=== PATIENT | female | born 1985 | race Caucasian/White ===

== ENCOUNTER → 2021-03-31 01:11 | Outpatient (CLI) | payer BC, SELFPAY ==
[2021-03-31 17:24] LABS: SARS-CoV-2 RNA PCR Negative
== END ==
PROVIDERS: Visit Provider Obstetrics & Gynecology
DX: Z01.812 Encounter for preprocedural laboratory examination (principal); Z20.822 Contact with and (suspected) exposure to COVID-19
CPT/HCPCS: C9803; U0003; U0005

== ENCOUNTER 2021-03-31 08:51 | Outpatient (CLI) | payer BC, SELFPAY ==
[2021-03-31 09:14] LABS: Hemoglobin 14.3 g/dL (12.0-15.0); Red Blood Count 4.66 M/mm3 (4.2-5.4)
[2021-03-31 09:15] LABS: Basophils Absolute Auto 0.1 K/mm3 (0.0-0.1); Basophils Percent Auto 0.6 % (0.2-1.2); Eosinophils Absolute Auto 0.1 K/mm3 (0-0.3); Eosinophils Percent Auto 1.6 % (0-4.4); Hematocrit 41.6 % (37.0-47.0); Immature Granulocyte Absolute 0.04 K/mm3 (0.00-0.031); Immature Granulocyte Percent A 0.4 % (0-0.5); Lymphocytes Absolute Auto 2.35 K/mm3 (0.9-3.2); Lymphocytes Percent Auto 26.2 % (18.3-44.2); Mean Corpuscular HGB Conc 34.4 g/dl (32-36); Mean Corpuscular Hemoglobin 30.7 pg (26-34); Mean Corpuscular Volume 89.3 fl (80-100); Mean Platelet Volume 9.9 fl (7.4-10.4); Monocytes Absolute Auto 0.6 K/mm3 (0.1-0.6); Neutrophils Absolute Auto 5.8 K/mm3 (1.3-6.7); Neutrophils Percent Auto 64.2 % (45.5-73.1); Platelet Count Result 274 k/mm3 (150-375); Red Cell Distribution Width 12.6 % (11.5-14.5)
== END 2021-03-31 08:52 | disposition home or self-care (01) ==
LOC: ANHSURGERY 08:54
PROVIDERS: Visit Provider Obstetrics & Gynecology
DX: Z01.812 Encounter for preprocedural laboratory examination (principal)
CPT/HCPCS: 36415; 85025; 86850; 86900; 86901

== ENCOUNTER 2021-04-03 00:04 | Day surgery (SDC) | payer BC, SELFPAY ==
[2021-03-30 09:17] VITALS: BMI 30.8
--- NOTE | 2021-04-01 06:34 | PM.IMHP ---
H&P: HPI History of Present Illness Date/Time: 04/01/21 06:34 35-year-old 4 para 3 admitted for robotic total vaginectomy and bilateral salpingectomies. She complains of pelvic pain and heavy bleeding. She has an enlarged uterus [id number] on ultrasound. She was unwilling to try an IUD and had no luck with hormonal manipulation. Permanence risks and benefits reviewed in full Chief Complaint: pelvic pain/ enlarged uterus/ uterine prolapse Review of Systems Review of Systems: All systems reviewed & are unremarkable except as noted in HPI and below PMFSH Social History Social History Smoking status: Current some day smoker Tobacco type: cigarettes Additional smoking assessment comments: SOCAILLY WHEN DRINKING Alcohol intake: current Substance use: never Substance use type: does not use Spiritual care concerns: No Meds Home Medications and Allergies Home Medications Medication Instructions Recorded Confirmed Type fexofenadine [Sonya] 180 mg PO DAILY 03/30/21 03/30/21 History Allergies Allergy/AdvReac Type Severity Reaction Status Date / Time progesterone Allergy Intermediate IN SESAME Verified 03/30/21 09:15 OIL= SWELLING AND ITCHING Exam Const: General: no acute distress Eyes: General: appearance normal, both eyes and all related structures Neck: Neck: supple and no JVD Thyroid: thyroid normal Resp: Effort & Inspection: normal respiratory effort Auscultation: clear to auscultation bilaterally Cardio: Rate: regular rate Rhythm: regular rhythm GI: Inspection: non-distended GI Palp: Yes Soft to palpation, No Tenderness to palpation present (GI) and No Guarding due to palpation present (GI) Auscultation: normal bowel sounds : External Female Exam: normal external appearance Speculum Exam - Vagina: normal appearance of the vagina Speculum Exam - Cervix: normal appearance of the cervix Bimanual exam- vagina & uterus: enlarged and Uterine tenderness Bimanual Exam- Adnexa, other: normal adnexae Skin: General skin exam: no rashes or lesions noted Extrem: General: normal to inspection and no edema Psych: Mental Status: mental status grossly normal Affect: normal affect Assessment and Plan Additional Plan impression: Enlarged uterus and pelvic pain with second-degree prolapse Plan: Robotic total vaginal hysterectomy and bilateral salpingectomy
--- NOTE | 2021-04-02 16:11 | P.PNAN_ITS ---
Anes - Initial Pre Proc Eval Procedure: Operation Date: 04/03/21 07:30 Proposed Procedures p Robotic Assisted Total Vaginal Hysterectomy With Bilateral Salpingectomy - Noel Thomas MD Date/Time: 04/02/21 16:11 Surgeon: Noel Thomas MD Pre Op Diagnosis: menorrhagia, pelvic pain, enlarged uterus Patient Data Age: 35 Gender: F Height: 1.71 m Weight: 90.72 kg Allergies Allergy/AdvReac Type Severity Reaction Status Date / Time progesterone Allergy Intermediate IN SESAME Verified 04/03/21 06:12 OIL= SWELLING AND ITCHING Home Medications Medication Instructions Recorded Confirmed Type fexofenadine [Sonya] 180 mg PO DAILY 03/30/21 04/03/21 History Patient hx anesthesia problems: none Family hx anesthesia problems: none [facility] Past Medical History Medical History (Updated 04/02/21 @ 16:11 by Benjamin Humphrey MD) Obesity Social History Social History Smoking status: Current some day smoker Tobacco type: cigarettes Additional smoking assessment comments: SOCAILLY WHEN DRINKING Alcohol intake: current Alcohol use details: 2-3/MONTH Substance use: never Substance use type: does not use Living arrangements: with family Spiritual care concerns: No Anes - Eval Final PreProcedure Day of Procedure 04/02/21 16:11 Patient weight: obese Heart: regular rate and rhythm Lungs: clear to auscultation and normal air movement Airway: Mallampati scale class II Neurological: alert and oriented Last oral intake: >/= 8 hours ASA classification: II Emergent: no Anesthetic plan: proceed Anesthesia type and monitoring: general ETT Informed Consent: The patient's anesthetic plan and its attendant risks and benefits were discussed with the patient/family/POA. Questions were solicited and answers provided to the satisfaction of the patient/family/POA.
[2021-04-03] VITALS (12 sets, daily range): BP systolic 107–145; BP diastolic 61–96; PULSE 66–100; RESP 11–20; TEMP 36.2–37.1; O2SAT 98–100
[2021-04-03] MEDS: ACETAMINOPHEN 500 MG TABLET 1000 MG PO (06:38)
[2021-04-03] MEDS: KETOROLAC 15 MG/ML VIAL (*BKC) IV PUSH (06:39)
[2021-04-03] MEDS: LACTATED RINGERS 1,000 ML 30 ML IV CONT ×2 (06:39→09:06)
--- NOTE | 2021-04-03 07:16 | WPDHPUPDATE1 ---
History and Physical Update Update Date/Time: 04/03/21 07:16 History and Physical has been reviewed, including an updated exam of the patient. There are NO changes in the patient's condition. Risks, benefits, and alternatives have been discussed and questions answered. Patient agrees to proceed with procedure.
[2021-04-03] MEDS: ceFAZolin 2 GM/D5W 50 ML 2 GM/50 ML BAG IVPB (07:27)
--- NOTE | 2021-04-03 08:47 | W.PM.PROC2 ---
Procedure Note - Detailed Date of Procedure 04/03/21 Pre-op Diagnosis menorrhagia, pelvic pain, enlarged uterus Post-op Diagnosis same Procedure Performed Robotic total vaginal hysterectomy and bilateral salpingectomy Surgeon Noel Thomas MD Anesthesia general Findings Markedly enlarged uterus. Tubes were swollen and status post tubal ligation. Normal-appearing ovaries Description of Procedure The patient was prepped draped in the normal sterile fashion and placed in the dorsal lithotomy position. Under excellent general endotracheal anesthesia weighted speculum placed in posterior fornix of vagina. Anterior lip of the cervix grasped with single-tooth tenaculum and the uterus sounded to 9cm. Serial dilatation with fragmented dilators performed followed by passage of the 8. MICHELLE and the 3. Cold cup. A 16 Indonesian catheter was placed in the bladder was drained of clear urine. The weighted speculum was removed as was the single-tooth. The gloves were changed. A supraumbilical incision made. The Veress needle passed in the abdomen. The abdomen filled with CO2 gas [id number]. The 8mm trocar advanced in the abdomen. The downside visualized no injury seen. The gas reattached in the patient placed in Trendelenburg. Right and left lateral quadrant incisions made in the 8mm trocars advanced under direct visualization assuring no injury. A right upper quadrant incision made in the 10mm trocar advanced under direct visualization assuring no injury. The robot was docked. Attention was turned to the console. The left round ligament was grasped, burned, cut. Anteriorly the bladder was markedly adherent to the uterus and was dissected and pressed caudally serially layer by layer until the cervix was exposed. This was brought across to the opposite round ligament. The round ligament on the right was clamped, burned, cut. The left fallopian tube was sharply dissected using monopolar cautery away from the ovarian complex. In like fashion the right fallopian tube was dissected away with sharp dissection and monopolar cautery to its base at the uterus as well. The ovaries appeared clear the left utero-ovarian ligament was skeletonized. This was serially clamped, burned, cut and brought to the level of previously cut round ligament in like fashion the utero-ovarian ligament on the right was clamped, burned, cut and brought to the level of the previously cut round ligament preserving the right ovary. The left cardinal and broad ligaments were serially skeletonized and sharply dissected with bipolar cautery clamping cutting burning until the uterine vessels could be seen. Uterine vessels on the left were noted be large and tortuous. These were individually clamped, burned, cut and till taken in completion. In like fashion the right cardinal and broad ligaments were serially skeletonized using bipolar cautery these were clamped, burned, cut and brought down the lateral edge of the cervix and uterus until the uterine vessels could be seen right. They were also large and torturous and wondered individually clamped, burned, cut and brought down the lateral edge of the uterus and cervix. At that point excellent blanching of the uterus was noted. A colpotomy incision was made and the cervix uterus and tubes removed through the vagina. Blood loss estimated at [id number]. The vagina was then closed with continuous running 0V lock from lateral edge to lateral edge back to the midline. Irrigation undertaken until clear and excellent hemostasis was noted. The robot was undocked. The gas removed from the abdomen. The trocars removed and the incisions closed with 4 Monocryl and glue. The patient was awakened. She went to recovery in satisfactory condition. All sponge, needle, instrument counts were correct. There were no immediate complications blood loss was estimated [id number] for the entire procedure Estimated Blood Loss 100 Drains No Pathology yes Com
[2021-04-03] MEDS: fentaNYL CITRATE INJ (*CRX) 100 MCG/2 ML VIAL 25 MCG IV PUSH ×3 (09:53→10:06)
--- NOTE | 2021-04-03 10:36 | PC.NURSE ---
This patient, Chichi Traore, was received from PACU on 04/03/21 at 1036 per bed. Patient/family oriented to unit policies and routines
[2021-04-03] MEDS: DEXTROSE 5%/LACTATED RINGERS 1,000 ML 125 ML IV CONT (11:02)
[2021-04-03] MEDS: KETOROLAC 30 MG/ML VIAL (*BKC) IV PUSH ×2 (12:18→19:24)
[2021-04-03] MEDS: HYDROcodone/acetaminophen (*CRX) 10-325 MG TABLET 1 TAB PO ×3 (13:17→19:25)
[2021-04-03] MEDS: DOCUSATE SODIUM 100 MG CAPSULE PO (16:25)
[2021-04-04] MEDS: SIMETHICONE 80 MG TAB.CHEW PO (00:46)
[2021-04-04] MEDS: HYDROcodone/acetaminophen (*CRX) 10-325 MG TABLET 1 TAB PO (00:46)
[2021-04-04 03:50] VITALS: BP 109/68; PULSE 84; RESP 18; TEMP 37; O2SAT 99
[2021-04-04 05:18] LABS: Basophils Percent Auto 0.3 % (0.2-1.2); Eosinophils Percent Auto 0.3 % (0-4.4); Hematocrit 33.4 % (37.0-47.0); Hemoglobin 11.5 g/dL (12.0-15.0); Immature Granulocyte Absolute 0.05 K/mm3 (0.00-0.031); Immature Granulocyte Percent A 0.3 % (0-0.5); Lymphocytes Absolute Auto 2.42 K/mm3 (0.9-3.2); Lymphocytes Percent Auto 16.1 % (18.3-44.2); Mean Corpuscular HGB Conc 34.4 g/dl (32-36); Mean Corpuscular Hemoglobin 30.3 pg (26-34); Mean Corpuscular Volume 87.9 fl (80-100); Monocytes Absolute Auto 0.9 K/mm3 (0.1-0.6); Monocytes Percent Auto 6.1 % (2.6-8.5); Neutrophils Absolute Auto 11.5 K/mm3 (1.3-6.7); Neutrophils Percent Auto 76.9 % (45.5-73.1); Platelet Count Result 263 k/mm3 (150-375); Red Cell Distribution Width 12.2 % (11.5-14.5)
[2021-04-04] MEDS: DOCUSATE SODIUM 100 MG CAPSULE PO (08:49)
[2021-04-04] MEDS: HYDROcodone/acetaminophen (*CRX) 5-325 MG TABLET 1 TAB PO (08:49)
[2021-04-04] MEDS: IBUPROFEN 600 MG TABLET PO (08:49)
[2021-04-04] MEDS: ENOXAPARIN 40 MG/0.4 ML SYRINGE SUB-Q (08:50)
[2021-04-04 09:00] VITALS: BP 108/71; PULSE 99; RESP 16; TEMP 36.8
--- NOTE | 2021-04-04 09:08 | PM.GYNPNOP ---
ILLUSIONIST - A/P Postoperative Procedures: Procedures Operation Date: 04/03/21 07:30 Actual Procedure Side Surgeon p Robotic Assisted Total Vaginal Hysterectomy With Bilateral Salpingectomy Bilateral Noel Thomas MD A: POD#1, doing well. P: Home to f/u 2 weeks. Time Spent With Patient Time with patient: less than 15 minutes ILLUSIONIST- PN:Subj Post-Op Subjective Date/time seen: 04/04/21 09:08 Interval history: Pain OK. Tolerating diet. Voiding. Would like to go home. Exam Narrative: Exam Narrative: AVSS I/O OK ABD soft, nontender. Incisions c/d/i. EXT nontender ILLUSIONIST - PN: Obj Data Vital Signs Vital Signs: Vital Signs - 24 hr 04/03/21 09:15 04/03/21 09:30 04/03/21 09:45 Temperature Pulse Rate 77 69 69 Respiratory Rate 12 11 L 13 Blood Pressure 136/83 141/85 H 136/80 Pulse Oximetry 100 100 99 04/03/21 09:58 04/03/21 10:00 04/03/21 10:45 Temperature 36.2 C L Pulse Rate 66 75 76 Respiratory Rate 11 L 17 18 Blood Pressure 140/80 144/81 H 114/69 Pulse Oximetry 98 98 100 04/03/21 12:04 04/03/21 16:25 04/03/21 19:25 Temperature 37.0 C 36.7 C 37.1 C Pulse Rate 74 78 75 Respiratory Rate 16 18 18 Blood Pressure 108/72 111/69 113/61 Pulse Oximetry 99 98 04/03/21 23:50 04/04/21 03:50 Temperature 36.9 C 37.0 C Pulse Rate 68 84 Respiratory Rate 18 18 Blood Pressure 107/63 109/68 Pulse Oximetry 98 99 Intake/Output Intake/Output: Intake & Output 04/01/21 04/02/21 04/03/21 04/04/21 23:59 23:59 23:59 23:59 Intake Total 2450 300 Output Total 850 950 Balance 1600 -650 Meds/Results Medications: Active Medications Generic Name Dose Route Start Last Admin Trade Name Freq PRN Reason Stop Dose Admin Hydrocodone Bitart/Acetaminophen 1 tab 04/03/21 10:35 04/04/21 08:49 Hydrocodone/Acetaminophen (*Crx) 5-325 Mg Tablet PO 1 tab Q3H PRN Administration Pain Rated 5 or Less Hydrocodone Bitart/Acetaminophen 1 tab 04/03/21 10:35 04/04/21 00:46 Hydrocodone/Acetaminophen (*Crx) 10-325 Mg Tablet PO 1 tab Q3H PRN Administration Pain Rated 6 or Greater Docusate Sodium 100 mg 04/03/21 10:35 04/04/21 08:49 Docusate Sodium 100 Mg Capsule PO 100 mg BID LAURA Administration Enoxaparin Sodium 40 mg 04/04/21 09:00 04/04/21 08:50 Enoxaparin 40 Mg/0.4 Ml Syringe SUB-Q 40 mg DAILY LAURA Administration Ibuprofen 600 mg 04/03/21 10:35 04/04/21 08:49 Ibuprofen 600 Mg Tablet PO 600 mg Q6H PRN Administration Cramping Ketorolac Tromethamine 30 mg 04/03/21 10:35 04/03/21 19:24 Ketorolac 30 Mg/Ml Vial (*Bkc) IV PUSH 04/08/21 10:36 30 mg Q6H PRN Administration Pain Rated 4-6 Morphine Sulfate 4 mg 04/03/21 10:35 Morphine Sulfate (*Crx) 4 Mg/Ml Inj IV PUSH Q4H PRN Severe breakthrough pain Naloxone HCl 0.1 mg 04/03/21 10:35 Naloxone Hcl 0.4 Mg/Ml Vial IV PUSH Q2M PRN Respiratory rate less than 10 Ondansetron HCl 4 mg 04/03/21 10:35 Ondansetron Inj 4 Mg/2 Ml Vial IV PUSH Q6H PRN Nausea And Vomiting Simethicone 80 mg 04/03/21 10:35 04/04/21 00:46 Simethicone 80 Mg Tab.Chew PO 80 mg Q2H PRN Administration Gas Labs CBC & Chem 7: 04/04/21 04:02 Labs: Laboratory Results - last 24 hr 04/04/21 04:02 WBC 15.0 H RBC 3.80 L Hgb 11.5 L Hct 33.4 L MCV 87.9 MCH 30.3 MCHC 34.4 RDW 12.2 Plt Count 263 MPV 10.0 Immature Gran % (Auto) 0.3 Neut % (Auto) 76.9 H Lymph % (Auto) 16.1 L [place] % (Auto) 6.1 Eos % (Auto) 0.3 Baso % (Auto) 0.3 Lymph # (Auto) 2.42 [place] # (Auto) 0.9 H Eos # (Auto) 0.0 Baso # (Auto) 0.0 Abs Immat Gran (auto) 0.05 H Absolute Neuts (auto) 11.5 H Absolute Nucleated RBC 0.0 Nucleated RBC % 0.0
== END 2021-04-04 10:55 | disposition home or self-care (01) ==
LOC: ANHSURGERY 06:04 → ANHOB2 11:11
PROVIDERS: Visit Provider Obstetrics & Gynecology
PROC: (CPT 58552; principal; 2021-04-03 07:30)
DX: N92.0 Excessive and frequent menstruation with regular cycle (principal); R10.2 Pelvic and perineal pain; N83.8 Other noninflammatory disorders of ovary, fallopian tube and broad ligament; N73.6 Female pelvic peritoneal adhesions (postinfective); E66.9 Obesity, unspecified; Z68.32 Body mass index [BMI] 32.0-32.9, adult; F17.210 Nicotine dependence, cigarettes, uncomplicated
CPT/HCPCS: 58552; S2900; 36415; 85025; 88307; 99199; A9270; J0330; J0690; J1100; J1200; J1650; J1885; J2250; J2405; J2704; J2710; J3010; J7030; J7120; J7121

== ENCOUNTER 2022-01-08 13:19 | Outpatient (CLI) | payer BC, SELFPAY ==
--- NOTE | ~2022-01-08 | MMUS_ITS ---
EXAMINATION: MM diagnostic alicia RT w gertrude, US breast RT complete HISTORY: Right breast growth TECHNIQUE: Additional 3-D tomosynthesis images of the right breast were performed and synthetic 2-D i mages were generated. CAD analysis was submitted and interpreted. High resolution complete right [address]ian[address] st ultrasound was performed. COMPARISON: None BREAST PARENCHYMAL COMPOSITION: Breast composed of scattered areas of fibroglandular density FINDINGS: MAMMOGRAPHIC FINDINGS: There are no suspicious masses, calcifications or architectural distortion in the right breast to sug gest malignancy. ULTRASOUND: Complete right US of all 4 quadrants of the right breast and retroareolar region was reviewed. Normal heterogeneous echotexture without focal solid or cystic mass. IMPRESSION: 1. No evidence for malignancy in the right breast. 2. Routine yearly screening mammogram and regular clinical breast examination are recommended. BI-RADS Category 1: Negative Reviewed, dictated and finalized at location A. IMPRESSION: 1. No evidence for malignancy in the right breast. 2. Routine yearly screening mammogram and regular clinical breast examination a re recommended. BI-RADS Category 1: Negative
== END 2022-01-08 13:20 | disposition home or self-care (01) ==
PROVIDERS: Visit Provider Obstetrics & Gynecology
DX: R92.8 Other abnormal and inconclusive findings on diagnostic imaging of breast (principal)
CPT/HCPCS: 76641; 77061; 77065; G0279

== ENCOUNTER 2024-11-12 16:41 | Emergency (ER) | payer OTHER, BC, SELFPAY ==
--- NOTE | ~2024-11-12 | XR_ITS ---
EXAMINATION: XR forearm RT 2V DATE: 11/12/2024 18:07 INDICATION: Right forearm injury and pain. TECHNIQUE: 2 views of right forearm were obtained. COMPARISON: None. FINDINGS: Alignment is normal. No fracture. Joint spaces are normal. No elbow joint effusion. IMPRESSION: 1. Normal right forearm. Reviewed, dictated and finalized at location A. RITY INCIDENT RESPONSE ENGINEER IMPRESSION: 1. Normal right forearm.
--- OUTSIDE RECORDS SUMMARY | 2024-11-12 16:53 | XMS_ITS | Referral Summary ---
Author Organization [address] lt Address [address] [place] [address] Care Team Providers Care Accounting Consultant Name Role Phone Noel Coto MD Unavailable [phone] No, Physician Primary Care Provider [phone] Encounters Date Type Department Care Team Description 10/15/2024 4:30 PM HAND I THERMAL CUTTER Office Visit [facility] [place] [address] [place] [address] Teresa Cruz NP Open wound of right index finger due to cat bite (Primary Dx); Abscess 10/03/2024 Telephone [facility] Scheduling [address] [place] [address] Bhupendra Osorio MD PhD Scheduling Appointments 09/17/2024 Telephone [facility] Surgery [address] [facility] 6th [place] [address] [place] [phone] Lizette David 09/10/2024 Telephone [facility] Surgery [address] [facility] 6th [place] [address] [place] [phone] Lizette David 08/17/2024 3:45 PM CDT Office Visit [facility] Cardiology [address] [facility] 8th [place] [address] [place] [address] Christo Winter MD Tachycardia (Primary Dx) from Last 3 Months Allergies No known active allergies Medications escitalopram (LEXAPRO) 10 mg tablet Take 1 tablet (10 mg total) by mouth every morning 2 Active spironolactone (ALDACTONE) 50 mg tablet Take 2 tablets (100 mg total) by mouth every morning 2 Active ivabradine (CORLANOR) 5 mg tabletIndicatio ns:chronic heart failure Take 1 tablet (5 mg total) by mouth 2 (two) times a day 180 tablet 3 5 Active ivabradine (CORLANOR) 5 mg tabletIndicatio ns:chronic heart failure Take 1 tablet (5 mg total) by mouth 2 (two) times a day 60 tablet 2 4 10/18/19 25 Discontinue d(Reorder) clindamycin (CLEOCIN) 150 mg capsuleIndicati ons:Open wound of right index finger due to cat bite Take 3 capsules (450 mg total) by mouth 3 (three) times a day for 7 days 63 capsule 4 10/22/19 25 sulfamethoxazol e-trimethoprim (BACTRIM DS) 800-160 mg per tabletIndicatio ns:Open wound of right index finger due to cat bite Take 1 tablet by mouth 2 (two) times a day for 7 days 14 tablet 4 10/22/19 25 Active Problems Problem Noted Date Diagnosed Date Microscopic hematuria 11/03/2023 Hematochezia 01/07/2023 Overview (01/07/2023): Added automatically from request for surgery [id number] Right ovarian cyst 12/14/2022 Hydronephrosis of right kidney 12/08/2022 Anxiety 12/08/2022 Overview (12/08/2022): - anxiety throughout most of my life - started lexapro in 2021 with psychiatrist - KLARISSA: 2 and PHQ: 2 - fatigue at times but sleeps well - increased HR over past week - one episode of sharp left sided chest pain- lasted a few seconds and occurred while driving - denies anxiety, depression, palpitations Discussed beta blockers and holter monitor defer both at this time. Continue to monitor symptoms. Continue lexapro and healthy coping mechanisms. Chronic low back pain 12/08/2022 Breast abscess 11/20/2022 Overview (12/08/2022): - hospitalized for right breast cellulitis in 10/2022 - hospitalized in 11/2022 for right breast abscess - aspirated on 11/08/2022 with IR - treated with IV and PO ABX - following up with plastic surgery - hx of breast reduction in 2021 - denies fever, chills, drainage, pain Continue to follow up with plastic surgery. Resolved Problems Problem Noted Date Diagnosed Date Resolved Date History of bilateral breast reduction surgery 11/07/1912/08/2022 Sepsis 11/07/2022 12/08/2022 Seroma of breast 11/07/2022 12/08/2022 Cellulitis of breast 11/07/2022 023 Benign neoplasm of skin of lower extremity 07/09/2015 12/08/2022 Immunizations Name Administration Dates Next Due Influenza, Quadrivalent, Ksenia l Culture-based MDCK, Preservative Free, Antibiotic Free, Intramuscular 10/22/2018 PPD TEST 07/27/2020,07/17/2020 Tdap 02/14/2019 Social History Tobacco Use Types Packs/Day Years Used Date Smoking Tobacco: Never Smokeless Tobacco: Never Tobacco Cessation:Counseling Given: Not Answered Humiliation, Afraid, Rape, and Kick questionnair e Answer Date Recorded Within the last year, have y ou been afraid of your partner or ex-partner? No 12/08/2022 Within the last year, have y ou been humiliated or emotionally abused in other ways by your partner or ex-partner? No Within the last year, have y ou been kicked, hit, slapped, or otherwise physically hurt by your partner or ex-partner? No 12/08/2022 Within the last year, have y ou been raped or forced to have any kind of sexual activity by your partner or ex-partner? No 12/08/2022 Social Connection and Isolat ion Panel [NHANES] Answer Date Recorded In a typical week, how many times do you talk on the phone with family, friends, or neighbors? More than three times a week 05/24/2023 How often do you get togethe r with friends or relatives? More than three times a week 05/24/2023 How often do you attend chur ch or tenriism services? Never 05/24/2023 Do you belong to any clubs o r organizations such as congregation groups, unions, fraternal or athletic groups, or school groups? No 05/24/2023 How often do you attend meet ings of the clubs or organizations you belong to? Not asked 05/24/2023 Are you , , di vorced, , never , or living with a partner? 05/24/2023 AUDIT-C Answer Date Recorded Q1: How often do you have a drink containing alc ohol? Monthly or less 01/18/2023 Q2: How many drinks containi ng alcohol do you have on a typical day when you are drinking? 3 or 4 01/18/2023 Q3: How often do you have si x or more drinks on one occasion? Never 01/18/2023 Overall Financial Resource Strain (CARDIA) Answe r Date Recorded How hard is it for you to pa y for the very basics like food, housing, medical care, and heating? Not hard at all 05/24/2023 PHQ-2 Answer Date Recorded Patient Health Questionnaire-2 Score 0 05/24/2023 [facility] of Occupat ional Health - Occupational Stress Questionnaire Answer Date Recorded Do you feel stress - tense, restless, nervous, or anxious, or unable to sleep at night because your mind is troubled all the time - these days? Not at all 05/24/2023 Exercise Vital Sign Answer Date Recorde d On average, how many days pe r week do you engage in moderate to strenuous exercise (like a brisk walk)? 4 days 05/24/2023 On average, how many minutes do you engage in exercise at this level? 40 min 05/24/2023 Hunger Vital Sign Answer Date Recorded Within the past 12 months, y ou worried that your food would run out before you got the money to buy more. Never true 05/24/20 23 Within the past 12 months, t he food you bought just didn't last and you didn't have money to get more. Never true 05/24/2023 PRAPARE - Transportation Answer Date Re corded In the past 12 months, has l ack of transportation kept you from medical appointments or from getting medications? No 05/2023 In the past 12 months, has l ack of transportation kept you from meetings, work, or from getting things needed for daily living? No 05/24/2023 Housing Stability Vital Sign Answer Yuan e Recorded In the last 12 months, was t here a time when you were not able to pay the mortgage or rent on time? No 05/24/2023 In the last 12 months, how many places have you lived? 1 05/24/2023 In the last 12 months, was t here a time when you did not have a steady place to sleep or slept in a alf (including now)? No 05/24/2023 Personal Safety Answer Date Recorded Have you ever been in or are you currently in a harmful physical or emotional relationship or is someone making you feel afraid or unsafe? Denies 10/28/2023 Comments No Sex and Gender Information Value Date Recorded Sex Assigned at Not on file Legal Sex Female 5:35 AM HAND I THERMAL CUTTER Gender Identity Not on file Sexual Orientation Not on file Last Filed Vital Signs Vital Sign Reading Time Taken Comments Blood Pressure 128/80 10/15/2024 4:39 PM HAND I THERMAL CUTTER Pulse 105 10/15/2024 4:39 PM HAND I THERMAL CUTTER Temperature 37.1 ??C (98.7 ??F) 10/15/2024 4:39 PM CS T Respiratory Rate 18 10/15/2024 4:39 PM HAND I THERMAL CUTTER Oxygen Saturation 98% 10/15/2024 4:39 PM HAND I THERMAL CUTTER Inhaled Oxygen Concentration - - Weight 93 kg (205 lb) 10/15/2024 4:39 PM HAND I THERMAL CUTTER Height 170.2 cm (5' 7 ) 10/15/2024 4:39 PM HAND I THERMAL CUTTER Body Mass Index 32.11 10/15/2024 4:39 PM HAND I THERMAL CUTTER Plan of Treatment Scheduled Procedures Name Priority Associated Diagnoses Date/Ti me COLONOSCOPY Hematochezia Procedures Procedure Name Priority Date/Time Associated Diagnosis Comments HEPATITIS C ANTIBODY Routine 01/12/2023 4:25 PM CDT Fatigue, unspecified type Screening for viral disease from Last 3 Months or Most Recently Relevant to Health Maintenance Results * Hepatitis C antibody (01/12/2023 4:25 PM CDT) Hep C Ab Nonreactive Nonreactive [facility] Comment: Interpretive Data Nonreactive: Antibodies to HCV not detected. Does NOT exclude the possibility of recent exposure to HCV. Equivocal: Equivocal for HCV antibodies. Supplemental molecular testing will be automatically performed to determine infection status in accordance with current CDC screening recommendations. ?? Reactive: Positive for HCV antibodies. ??This may represent current or past HCV infection. Supplemental molecular testing will be automatically performed to determine ??current infection status in accordance with current CDC screening recommendations. Interpretive data was last revised on 2020. Testing performed by: [facility], [facility], [place]., [address] Blood 01/12/2023 4:25 PM CDT 01/12/2023 8:10 PM CDT Hoa onofre NP LAB MICROBIOLOGY - GENERAL ORDERABLES Edited Result - Final [facility] [address] [facility] Department [place] [address] from Last 3 Months or Most Recently Relevant to Health [place] [address] [facility] [employer] [address] [employer] [place] [address] [place] [address] [facility] Advance Directives For more information, please contact: [phone] * Full Code (Latest Code Status on File) Date Activated Date Inactivated Comments 01/18/2023 2:07 PM 01/18/2023 7:55 PM * Full Code Date Activated Date Inactivated Comments 11/20/2022 5:03 AM 11/21/2022 6:58 PM * Full Code Date Activated Date Inactivated Comments 11/07/2022 6:55 PM 11/10/2022 7:01 PM * Full Code Date Activated Date Inactivated Comments 11/07/2022 5:23 PM 11/07/2022 6:55 PM Care Teams Accounting Consultant Relationship Specialty Start Date End Date No, Physician PCP - General 10/19/23 Noel Coto MD [address] [address] Referring Physician Obstetrics and Gynecology 12/08/22
--- OUTSIDE RECORDS SUMMARY | 2024-11-12 16:53 | XMS_ITS | Clinical Summary ---
Author Organization [facility] [address] [place] [address] [place] [address] Care Team Providers Care Metal Cleaner Name Role Phone Noel Coto MD Unavailable [phone], Physician Primary Care Provider [phone] Allergies No known active allergies Medications escitalopram [...] a day for 7 days 14 tablet 10/22/19 Active Problems Problem Noted Date Diagnosed Date Microscopic hematuria 11/03/2023 Hematochezia 01/07/2023 Overview (01/07/2023): Added automatically from request for surgery [id number] Right ovarian cyst 12/14/2022 Hydronephrosis of right [...] Date History of bilateral breast reduction surgery 11/07/19 23 12/08/2022 Sepsis 11/07/2022 12/08/2022 Seroma of breast 11/07/2022 12/08/2022 Cellulitis of breast 11/07/2022 023 Benign neoplasm of skin of lower extremity 07/09/2015 12/08/2022 Encounters Date Type Department Care Team Description 10/15/2024 4:30 PM DESPATCHING AND RECEIVING CLERK Office Visit [facility] [place] [address] [place] [address] Teresa Cruz, DORENE Open wound of right index finger due to cat bite (Primary Dx); Abscess 10/03/2024 Telephone [facility] Scheduling [address] [place] [address] Bhupendra Osorio MD PhD Scheduling Appointments 09/17/2024 Telephone [facility] Surgery [address] [facility] 6th [place] [address] [place] [phone] Lizette David 09/10/2024 Telephone [facility] Surgery [address] [facility] 6th [place] [address] [place] [phone] Lizette David 08/17/2024 3:45 PM CDT Office Visit [facility] Cardiology [address] [facility] 8th [place] [address] [place] [phone] Christo Winter MD Tachycardia (Primary Dx) from Last 3 Months Immunizations Name Administration Dates Next Due Influenza, Quadrivalent, Ksenia l Culture-based MDCK, Preservative Free, Antibiotic Free, Intramuscular 10/22/2018 PPD TEST 07/27/2020,07/17/2020 Tdap 02/14/2019 Surgical History Surgery Date Site/Laterality Comments SECTION 10/17/2013 - 10/16/2014 twins HYSTERECTOMY 10/17/2020 - 10/16/2021 non- cancerous reasons- still has ovaries and cervix DILATION AND CURETTAGE OF UTERUS 10/17/2014 - 10/16/2015 SECTION 10/17/2018 - 10/16/2019 COMBINED REDUCTION MAMMAPLASTY W/ ABDOMINOPLASTY 05/18/2022 US GUIDED ASPIRATION ABSCESS HEMATOMA CYST SOFT TISSUE 11/08/2022 N/A WISDOM TOOTH EXTRACTION Medical History Medical History Date Comments Chronic low back pain Anxiety started lexapro in 2021 Covid-19 10/2021 Cellulitis of breast 11/07/2022 Breast abscess 11/20/2022 Sepsis (HCC) 11/07/2022 History of bilateral breast reduction surgery Benign neoplasm of skin of lower extremity 07/09 Seroma of breast 11/07/2022 Right ovarian cyst 12/14/2022 Family History Medical History Relation Name Comments Basal cell carcinoma Father Colon cancer Maternal Grandfather Chronic granulomatous disease Maternal Grandmother Weggners No Known Problems Mother Cancer Paternal Grandfather Asthma Son 3 [place] Anesthesia problems Neg Hx Relation Name Status Comments Brother Alive Father Alive Maternal Grandfather Maternal Grandmother Mother Alive Paternal Grandfather Paternal Grandmother Son 1 Tre Alive Son 2 Augusto Alive Son 3 Conroy Alive Social History Tobacco Use Types Packs/Day Years [...] 05/24/2023 How often do you attend chur or anabaptism services? Never 05/24/2023 Do you belong to any clubs o r organizations such as restoration groups, unions, fraternal or athletic groups, or [...] Recorded Patient Health Questionnaire-2 Score 0 05/24/2023 [facility] of Occupat ional [facility] - Occupational Stress Questionnaire Answer Date Recorded [...] place to sleep or slept in a chcf (including now)? No 05/24/2023 Personal Safety Answer Date Recorded Have you ever been in or are you currently in a harmful physical or emotional relationship or is someone making you feel afraid or unsafe? Denies 10/28/2023 Comments No Sex and Gender Information Value Date Recorded Sex Assigned at Not on file Legal Sex Female 5:35 AM DESPATCHING AND RECEIVING CLERK Gender Identity Not on file Sexual Orientation Not on file Obstetrics History Last Filed Vital Signs Vital Sign Reading Time Taken Comments Blood Pressure 128/80 10/15/2024 4:39 PM DESPATCHING AND RECEIVING CLERK Pulse 105 10/15/2024 4:39 PM DESPATCHING AND RECEIVING CLERK Temperature 37.1 ??C (98.7 ??F) 10/15/2024 4:39 PM CS T Respiratory Rate 18 10/15/2024 4:39 PM DESPATCHING AND RECEIVING CLERK Oxygen Saturation 98% 10/15/2024 4:39 PM DESPATCHING AND RECEIVING CLERK Inhaled Oxygen Concentration - - Weight 93 kg (205 lb) 10/15/2024 4:39 PM DESPATCHING AND RECEIVING CLERK Height 170.2 cm (5' 7 ) 10/15/2024 4:39 PM DESPATCHING AND RECEIVING CLERK Body Mass Index 32.11 10/15/2024 4:39 PM DESPATCHING AND RECEIVING CLERK Plan of Treatment Scheduled Procedures Name Priority Associated Diagnoses Date/Ti me COLONOSCOPY Hematochezia Health Maintenance Due Date Last Done Comments Varicella Vaccines (1 of 2 - 13+ 2-dose series) 1999 Hepatitis B Screening 2004 Regular Well Visit/Exam 18-64 12/08/2023 12/08/2022 Depression Screening 05/24/2024 05/24/2023, 12/08/2022, 12/08/2022 Covid-19 Vaccine (2 - 2023-2 5 season) 2024 01/22/2021 Influenza Vaccine (#1) 2024 10/22/2018 DTaP/Tdap/Td Vaccine (2 - Td or Tdap) 02/14/2029 02/14/2019 Hepatitis C Screening Completed 01/12/2023 , 05/07/2013 HPV Vaccines Aged Out No longer eligi ble based on patient's age to complete this topic Pneumococcal vaccine <65 Aged Out No longer eligible based on patient's age to complete this topic Procedures Procedure Name Priority Date/Time Associated Diagnosis Comments HEPATITIS C ANTIBODY Routine 01/12/2023 4:25 PM CDT Fatigue, unspecified type Screening for viral disease from Last 3 Months or Most Recently Relevant to Health Maintenance Results * Hepatitis C antibody (01/12/2023 4:25 PM CDT) Hep C Ab Nonreactive Nonreactive [facility] Comment: Interpretive Data Nonreactive: Antibodies to HCV [...] last revised on 2020. Testing performed by: [facility], [facility]5 [facility], [place]., [address] Blood 01/12/2023 4:25 PM CDT 01/12/2023 8:10 PM CDT Hoa onofre NP LAB MICROBIOLOGY - GENERAL ORDERABLES Edited Result - Final [facility] [address] [facility]. Department [place] [address] from Last 3 Months or Most Recently Relevant to Health [place] [address] [employer] [facility] [place] [address] [place] [address] [place] [address] [place] [address] [place] [address] [facility] Advance Directives For more information, please contact: [phone] * Full Code (Latest Code Status on File) Date Activated Date Inactivated Comments 01/18/2023 2:07 PM 01/18/2023 7:55 PM * Full Code Date Activated Date Inactivated Comments 11/20/2022 5:03 AM 11/21/2022 6:58 PM * Full Code Date Activated Date Inactivated Comments 11/07/2022 6:55 PM 11/10/2022 7:01 PM * Full Code Date Activated Date Inactivated Comments 11/07/2022 5:23 PM 11/07/2022 6:55 PM Care Teams Metal Cleaner Relationship Specialty Start Date End Date No, Physician PCP - General 10/19/23 Noel Coto MD [address] [address] Referring Physician Obstetrics and Gynecology 12/08/22
--- OUTSIDE RECORDS SUMMARY | 2024-11-12 16:53 | XMS_ITS | Data Portability ---
Author Organization [facility], Main Office Address [address] [place] [address] Assessment Encounter Date Assessment Date Assessment LastModified by Organization Details LastModified Time 01/19/2023 01/19/2023 37 y/o female presents to the clinic via TM to review lab results: - PE and vitals are limited 2/2 TM - Labs completed with PCP and would like us to interpret the results and provide further guidance - No significant past medical history; recent hospitalizations 2/2 sepsis and breast abscess s/p breast reduction (in May 2022) - Patient's labs indicate acute kidney injury, unknown etiology - Recommend patient follow up with nephrology for further evaluation I performed this visit using real time two way telehealth tools, including Doximity video visits between my location and the patient's location. Prior to initiating the services, I obtained the patient's informed verbal consent to perform this visit using the telehealth tools and answered all the patient's questions. [email or web address] Not available 01/20/2023 13:50:23 Plan of Treatment Reminders Order Date Submit Date Provider Last Modified By Organization Details Last Modified Time Details Appointments None recorded. Lab None recorded. Referral nephrologis t referral 2022 023 MANDI Not available 4 05:01:23 Procedures None recorded. Surgeries None recorded. Imaging None recorded. Medication Orders None recorded. Patient TargetsNo targets recorded. Patient InstructionsNo instructions recorded. 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 Medications Name Sig Start Date Stop Date Status Note LastModified by Organization Details LastModified Time tretinoin 0.1 % topical cream PLEASE SEE ATTACHED FOR DETAILED DIRECTIONS active Not Available Not Available N ot Available doxycycline hyclate 100 mg capsule TAKE 1 CAPSULE BY MOUTH TWICE A DAY active Not Available Not Available No t Available clindamycin HCl 300 mg capsule active Not Available Not Available Not Available triamcinolon e acetonide 0.5 % topical cream APPLY 1 APPLICATION TOPICALLY TWICE A DAY active Not Available Not Available Not Available phentermine 37.5 mg tablet TAKE 1 TABLET BY MOUTH AT 11AM active Not Available Not Available No t Available tretinoin 0.05 % topical cream APPLY TO FACE AT BEDTIME TOLERATED active Not Available Not Available No t Available phendimetraz ine tartrate 35 mg tablet TAKE 1 TABLET BY MOUTH AT 3PM active Not Available Not Available No t Available clindamycin phosphate 1 % topical swab APPLY TO BACK AND GROIN ONCE DAILY active Not Available Not Available No t Available hydroxyzine HCl 10 mg tablet TAKE 1 TABLET BY MOUTH TWICE A DAY NEEDED active Not Available Not Available No t Available cefdinir 300 mg capsule active Not Available Not Available N ot Available phentermine 37.5 mg capsule TAKE 1 CAPSULE (37.5 MG) BY ORAL ROUTE ONCE DAILY BEFORE BREAKFAST active Not Available Not Available No t Available spironolacto ne 50 mg tablet TAKE 1 TABLET BY MOUTH EVERY DAY FOR 2 WEEKS THEN 2 TABLETS DAILY THEREAFTER active Not Available Not Available N ot Available amoxicillin 875 mg-potassium clavulanate 125 mg tablet TAKE 1 TABLET BY MOUTH EVERY 12 HOURS active Not Available Not Available No t Available oxycodone 5 mg tablet active Not Available Not Available No t Available escitalopram 10 mg tablet TAKE 1 TABLET BY MOUTH EVERY DAY active Not Available Not Available No t Available GaviLyte-G 236 gram-22.74 gram-6.74 gram-5.86 gram oral solution PLEASE SEE ATTACHED FOR DETAILED DIRECTIONS active Not Available Not Available N ot Available Vitals None Recorded Social History None recorded. Functional Status None recorded. Mental Status None recorded. Family History Nothing Reported. Medical History No medical history recorded. Gynecological HistoryNo gynecological history recorded. Obstetrics History GPAL:G 0 P 0 0 0 0 Past Encounters Encounter ID Performer Location Encounter Start Date Encounter Closed Date Diagnosis/Indication Diagnosis SNOMED-CT Code Diagnosis ICD10 Code Diagnosis Note [id number] [facility] Main Office [address] [place] [address] 01/19/2023 20:03:41 02/16/2023 07:37:20 Acute injury of kidney [id number] N17.9 Health Concerns Section Related Observation LastModified by Organization Detai ls LastModified Time None Recorded Concern Status LastModified by Organization Details LastModified Time None Recorded Advance Directives Directive None Recorded Payers Encounter Date Sequence Insurance Name Policy Number Policy Edwards Covered Member ID Edwards Member ID Guarantor Name 01/19/2023 1 [place] [id number] Wolf Traore [id number] Chichi Traore Notes Date Note Type Note Provider Name and Address Organization Details Recorded Time 01/19/2023 text/html 37 y/o female presents to the clinic via TM to review lab results. Patient underwent a breast reduction in May 2022. She was hospitalized when she developed a rash under left breast, she was found to have sepsis in October 2022 2/2 to breast reduction. She was hospitalized again in november 2022 due to right breast abscess. Patient underwent lab workup and she has noticed GFR has been gradually down trending:- October: 119- November: 117- December: 97 She had several urine anaylysis completed in the last few months which showed: + urobilinogen, protein, ketones Now patient reports increased fatigue, joint pain. Had labs done with a different provider, due to lack of communication she would like our clinic to give her guidance on who to follow up with. PMH: anxiety, acnePSH: breast reduction; hysterectomy, D&CMedications: lexapro 10 mg, spironolactoneAller gies: progesterone, sesame oil [facility] [address] [facility], [place], [address], [place] - [facility] 01/20/2023 13:51:22 OBGyn Episode No OBEpisode recorded.
--- OUTSIDE RECORDS SUMMARY | 2024-11-12 16:53 | XMS_ITS | Clinical Summary ---
Author Organization [facility] Administrative Offices Address [address] [place] [id number] Care Team Providers Care Chemical Plant Technical Director Name Role Phone Unavailable Primary Care Provider Unavailabl e Allergies No known active allergies Medications leuprolide acetate (LUPRON) 1 mg/0.2 mL subCUT Kit SQ kit Inject by subcutaneous injection one time only. Active dexamethasone (DECADRON) 0.75 mg Oral Tab Take 0.75 mg by mouth daily. Active folic acid (FOLVITE) 1 mg Oral tablet Take 1 mg by mouth daily. Active vit-iron fumarate-FA ( S) 27-0.8 mg Oral Tab Take 1 Tab by mouth daily. Active metFORMIN (GLUCOPHAGE) 500 mg Oral tablet Take 500 mg by mouth 2 times daily with meals. Active fexofenadine (BONITA) 30 mg Oral Tab Take 30 mg by mouth 2 times daily. Active Family History Medical History Relation Name Comments Ovarian Cancer Maternal Grandfather Relation Name Status Comments Maternal Grandfather Social History Tobacco Use Types Packs/Day Years Used Date Smoking Tobacco: Never Assessed Alcohol Use Standard Drinks/Week Comments No 0 (1 standard drink = 0.6 oz pur e alcohol) Comments Unknown Sex and Gender Information Value Date Recorded Sex Assigned at Not on file Legal Sex Female 1:18 PM CDT Gender Identity Not on file Sexual Orientation Not on file Occupation Industry Job Start Date Job End Date Not on file Not on file Not on file Not on file Last Filed Vital Signs Vital Sign Reading Time Taken Comments Blood Pressure 138/77 04/13/2013 1:37 PM CDT Pulse 111 04/13/2013 1:37 PM CDT Temperature 37.2 ??C (99 ??F) 04/13/2013 1:37 PM CDT Respiratory Rate 18 04/13/2013 1:37 PM CDT Oxygen Saturation - - Inhaled Oxygen Concentration - - Weight 97.5 kg (215 lb) 04/13/2013 1:37 PM CDT Height 170.2 cm (5' 7 ) 04/13/2013 1:37 PM CDT Body Mass Index 33.67 04/13/2013 1:37 PM CDT Plan of Treatment Health Maintenance Due Date Last Done Comments DTAP/TDAP/TD VACCINES (1 - Tdap) 2005 HEPATITIS B VACCINES (1 of 3 - 19+ 3-dose series) 2005 CERVICAL CANCER SCREENING 2016 INFLUENZA VACCINE (#1) 2024 HPV VACCINES Aged Out No longer eligi ble based on patient's age to complete this topic Insurance [employer] ACCESS/TRUE BLUE PPO
[2024-11-12 16:54] VITALS: BP 130/75; PULSE 101; RESP 20; TEMP 37.3; O2SAT 100
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
== END 2024-11-12 19:17 | disposition home or self-care (01) ==
PROVIDERS: Emergency Provider Registered Nurse
DX: S59.811A Other specified injuries right forearm, initial encounter (principal); Y09 Assault by unspecified means; Y99.0 Civilian activity done for income or pay; M77.8 Other enthesopathies, not elsewhere classified; E66.9 Obesity, unspecified; Z68.30 Body mass index [BMI] 30.0-30.9, adult; Z72.0 Tobacco use
CPT/HCPCS: 73090; 99213; G0463